=== PATIENT | male | born 1990 | race Two or more races ===

== ENCOUNTER 2017-03-12 03:00 | Emergency (ER) | payer SELFPAY ==
[2017-03-12] MEDS ORDERED: HYDROCODONE/ACETAMINOPHEN 5/325MG TABLET PO ONE (07:15)
[2017-03-12] MEDS ORDERED: IBUPROFEN 600MG TABLET PO ONE (07:15)
[2017-03-12 11:01] VITALS: BP 127/82
== END 2017-03-12 11:03 | disposition home or self-care (01) ==
LOC: ER 03:00
DX: K08.89 Other specified disorders of teeth and supporting structures (principal); R07.9 Chest pain, unspecified
CPT/HCPCS: 93005; 99284

== ENCOUNTER 2019-01-19 13:43 | Emergency (ER) | payer SELFPAY ==
[~2019-01-19] VITALS: Ht 170.2 cm; Wt 91.0 kg
[2019-01-19] MEDS ORDERED: IBUPROFEN 600MG TABLET PO ONE (16:00)
[2019-01-19] MEDS ORDERED: TETANUS, DIPHTHERIA, PERTUSSIS VAC/PF 0.5ML (>7YR OLD) IM ONE (16:00)
[2019-01-19] MEDS ORDERED: BACITRACIN ZINC OINT UDPKT TOP ONE (16:00)
[2019-01-19] MEDS ORDERED: LIDOCAINE HCL/PF 1% 10 MG/ML 5ML VIAL IJ ONE (16:00)
[2019-01-19 17:24] VITALS: BP 118/77
== END 2019-01-19 17:25 | disposition home or self-care (01) ==
LOC: ER 13:43
DX: S60.413A Abrasion of left middle finger, initial encounter (principal); W45.8XXA Other foreign body or object entering through skin, initial encounter; Y93.89 Activity, other specified; Y92.89 Other specified places as the place of occurrence of the external cause; Y99.8 Other external cause status
CPT/HCPCS: 90471; 90715; 99283; J3490